=== PATIENT | female | born 1955 | race Caucasian/White ===

== ENCOUNTER 2017-10-20 14:19 | Outpatient (CLI) | payer BC ==
--- NOTE | 2017-10-20 15:36 | CT ---
CT CHEST WITHOUT CONTRAST: Date: 10/20/17 HISTORY: Screening for malignant neoplasm of lungs. Current smoker for greater than 50 years. History of bronc hitis and COPD. TECHNIQUE: Multiple contiguous axial images were obtained in a CT of the chest without contrast per low dose [facility] screening protocol. Sagittal and coronal reformats were performed. FINDINGS: No pulmonary nodules are identified. No pneumothorax or pleural effusions seen. No focal infiltrates are seen in the lungs. The heart is normal in size. Calcifications are seen in the coronary arteries and aorta. No hilar or mediastinal lymphadenopathy are appreciated on this limited noncontrast examination. Degenerative changes are seen in the spine. The visualized subdiaphragmatic structures and chest wall soft tissues are unremarkable. IMPRESSION: Lung-RADS Category 1 - Negative. POS: [facility]
== END 2017-10-20 14:20 | disposition home or self-care (01) ==
LOC: CT 14:19
PROVIDERS: ATTEND Internal Medicine Pulmonary Disease
DX: F17.210 Nicotine dependence, cigarettes, uncomplicated (principal)
CPT/HCPCS: G0297